=== PATIENT | female | born 2000 | race Caucasian/White ===

== ENCOUNTER 2023-03-20 16:13 | Emergency (ER) | payer MEDICAID, SELFPAY ==
[2023-03-20 17:16] LABS: Pregnancy Test - Urine (BHCG) Negative (Negative); Pregu Control Background? CLEAR/WHITE (CLR/WHITE); Pregu Control Bar Appear? YES (CONTROL BAR)
== END 2023-03-20 17:30 | disposition home or self-care (01) ==
LOC: CSHERS 16:13
DX: N91.2 Amenorrhea, unspecified (principal); F17.210 Nicotine dependence, cigarettes, uncomplicated
CPT/HCPCS: 81025; 99282